=== PATIENT | female | born 1980 | race Caucasian/White ===

== ENCOUNTER → 2018-01-07 15:21 | Outpatient (CLI) | payer OTHER, SELFPAY ==
[2018-01-07 18:06] LABS: Chlamydia Trachomatis by PCR Negative (Negative); Neisserai gonorrhoeae by PCR Negative (Negative); Probe Check PASS; Sample Adequacy Control PASS; Specimen Processing Control PASS
== END ==
PROVIDERS: Visit Provider Obstetrics & Gynecology
DX: Z11.3 Encounter for screening for infections with a predominantly sexual mode of transmission (principal); Z32.01 Encounter for pregnancy test, result positive
CPT/HCPCS: 87491; 87591

== ENCOUNTER → 2018-01-21 15:20 | Outpatient (CLI) | payer OTHER, SELFPAY ==
[2018-01-21 16:12] LABS: Color, Urine Yellow (Yellow); Glucose, Dipstick Normal (Normal); Ketone-Dipstick Negative (Negative); Leukocyte Esterase-Dipstick Negative /ul (Negative); Nitrite-Dipstick Negative (Negative); Occult Blood-Urine Negative /ul (Negative); Protein-Dipstick Negative (Negative); Specific Gravity, Urine 1.015 (1.002-1.030); Urine Bilirubin Dipstick Negative (Negative); Urine Clarity Sl. Cloudy (Clear); Urine Urobilinogen Normal (Normal); Urine pH 6.5 (5.0 - 8.0)
[2018-01-21 16:15] LABS: Absolute Lymphocyte Count 2.16 X10^3/ul (0.83-4.51); Absolute Neutrophil Count 4.7 X10^3/uL (2.0-7.7); Basophil# 0.02 X10^3/uL; Basophil% 0.3 % (0-1); Eosinophil# 0.06 X10^3/uL; Eosinophils% 0.8 % (0-5); Hematocrit 35.9 % (37-47); Hemoglobin 12.2 g/dl (12.0-15.0); Lymphocyte # 2.16 X10^3/ul (4.0); Lymphocyte % 28.7 % (19-41); Mean Corpuscular Hgb 30.4 pg (27.0-32.0); Mean Corpuscular Volume 89.5 fL (81-99); Mean Platelet Vol. 11.2 fl (6.2-12.0); Monocyte# 0.56 X10^3/uL; Monocyte% 7.4 % (0-10); Neutrophil # 4.69 X10^3/uL (2.7-7.7); Neutrophil % 62.4 % (47-70); POSITIVE COUNT NO; POSITIVE DIFFERENTIAL NO; POSITIVE MORPHOLOGY NO; Platelet Count 167 K/mm3 (150-450); RBC Distribution Width CV 12.3 % (11.6-14.6); RBC Distribution Width SD 39.9 fl (35.1-43.9); Red Blood Count 4.01 M/mm3 (4.2-5.4); White Blood Count 7.5 K/mm3 (4.4-11.0)
[2018-01-21 16:35] LABS: Thyroid Stim Hormone (TSH) 0.81 uIU/mL (0.358-3.74)
[2018-01-21 17:07] LABS: HIV - WCH Non-Reactive (Nonreactive); Rubella IgG 22.1 IU/mL
[2018-01-21 17:43] LABS: Amphetamine Urine VISTA NEGATIVE (<1000 ng/mL); Barbiturate Urine VISTA NEGATIVE (< 200 ng/mL); Benzodiazepine Urine VISTA NEGATIVE (< 200 ng/mL); Cocaine Urine VISTA NEGATIVE (< 300 ng/mL); Ecstacy Urine VISTA NEGATIVE (< 500 ng/mL); Methadone Urine VISTA NEGATIVE (< 300 ng/mL); PCP Urine VISTA NEGATIVE (< 25 ng/mL); THC Urine VISTA NEGATIVE (< 50 ng/mL); Vista UDS pH Range 6
[2018-01-23 05:01] LABS: Prenatal RPR NONREACTIVE (NONREACTIVE)
[2018-01-23 11:15] LABS: HEPATITIS B SURFACE AG Negative (Negative); Hep C Antibodies <0.1 s/co ratio (0.0-0.9)
== END ==
PROVIDERS: Visit Provider Obstetrics & Gynecology
DX: Z34.81 Encounter for supervision of other normal pregnancy, first trimester (principal)
CPT/HCPCS: 36415; 80307; 81002; 84443; 85025; 86703; 86762; 86803; 87340

== ENCOUNTER → 2018-05-28 16:19 | Outpatient (CLI) | payer OTHER, SELFPAY ==
[2018-05-28 17:13] LABS: Hematocrit 31.5 % (37-47); Hemoglobin 10.5 g/dl (12.0-15.0); Mean Corp Hgb Conc 33.3 g/gl (32-36); Mean Corpuscular Hgb 30.6 pg (27.0-32.0); Mean Corpuscular Volume 91.8 fL (81-99); Mean Platelet Vol. 9.7 fl (6.2-12.0); Platelet Count 156 K/mm3 (150-450); RBC Distribution Width CV 12.9 % (11.6-14.6); RBC Distribution Width SD 41.8 fl (35.1-43.9); Red Blood Count 3.43 M/mm3 (4.2-5.4); White Blood Count 8.9 K/mm3 (4.4-11.0)
[2018-05-28 17:17] LABS: Scan Indicated on CBC? Y/N NO
[2018-05-28 18:17] LABS: Glucose Challenge Gest 1H 50g 112 mg/dL (70-140)
== END ==
PROVIDERS: Visit Provider Obstetrics & Gynecology
DX: Z34.83 Encounter for supervision of other normal pregnancy, third trimester (principal)
CPT/HCPCS: 36415; 82950; 85027

== ENCOUNTER → 2018-07-27 20:05 | Outpatient (CLI) | payer OTHER, SELFPAY ==
[2018-07-27 21:39] LABS: Group B Strep DNA By PCR Negative (Negative); Internal Control PASS; Probe Check PASS; Specimen Processing Control PASS
== END ==
PROVIDERS: Referring Provider Obstetrics & Gynecology; Visit Provider Obstetrics & Gynecology
DX: Z36.85 Encounter for antenatal screening for Streptococcus B (principal)
CPT/HCPCS: 87081; 87653

== ENCOUNTER 2018-08-19 05:30 | Inpatient (IN) | payer OTHER, SELFPAY ==
[2018-08-18 11:27] VITALS: BMI 29.0
[2018-08-18 12:38] LABS: Absolute Lymphocyte Count 1.83 X10^3/ul (0.83-4.51); Absolute Neutrophil Count 6.2 X10^3/uL (2.0-7.7); Basophil# 0.01 X10^3/uL; Basophil% 0.1 % (0-1); Eosinophil# 0.04 X10^3/uL; Eosinophils% 0.5 % (0-5); Hematocrit 30.7 % (37-47); Hemoglobin 9.6 g/dl (12.0-15.0); Lymphocyte # 1.83 X10^3/ul (4.0); Lymphocyte % 20.7 % (19-41); Mean Corp Hgb Conc 31.3 g/gl (32-36); Mean Corpuscular Hgb 27.7 pg (27.0-32.0); Mean Corpuscular Volume 88.5 fL (81-99); Mean Platelet Vol. 9.4 fl (6.2-12.0); Monocyte# 0.55 X10^3/uL; Monocyte% 6.2 % (0-10); Neutrophil # 6.24 X10^3/uL (2.7-7.7); Neutrophil % 70.6 % (47-70); Platelet Count 142 K/mm3 (150-450); RBC Distribution Width CV 14.6 % (11.6-14.6); Red Blood Count 3.47 M/mm3 (4.2-5.4); White Blood Count 8.8 K/mm3 (4.4-11.0)
[2018-08-18 12:44] LABS: POSITIVE COUNT NO; POSITIVE DIFFERENTIAL NO; POSITIVE MORPHOLOGY NO
[2018-08-19] VITALS (21 sets, daily range): BP systolic 89–115; BP diastolic 41–69; PULSE 76–97; RESP 16–19; TEMP 35.8–36.8; O2SAT 97–100
[2018-08-19] MEDS: Lactated Ringers 1,000 ML 999 ML IV (05:45)
[2018-08-19] MEDS: Lactated Ringers 1,000 ML 150 ML IV (06:51)
[2018-08-19] MEDS: Sodium Citrate/Citric Acid 30 ML UDC PO (06:56)
[2018-08-19] MEDS: Cefazolin 2 GM in 0.9% Normal Saline 100 ML IV (07:21)
[2018-08-19] MEDS: Oxytocin 30 units/NS 500 ml 30 UNITS/500 ML IV.SOLN 167 UNITS IV ×2 (07:43→08:18)
--- NOTE | 2018-08-19 08:21 | DCINST_ITS ---
Discharge Diet: No Restrictions Discharge Activity: May not drive while taking narcotic pain medications., May Shower, May Take a Tub Bath May resume sexual activity in: 4-6 weeks Lifting Restrictions: 20 pounds Additional Activity Instructions:: Nothing in the vagina for 4-6 weeks. You may return to work/school in 6 weeks. Call your doctor if your incision/area has: Continuous Slow Oozing, Sudden Increased Bleeding, Increased Pain/ Swelling, Increased Redness, Foul Smelling Discharge Call your doctor if you observe: Fever of 101 or Higher, Inability to urinate, Inability to have a bowel movement, Using more than one pad per hour Additional Instructions: If you experience any of the following, contact your healthcare provider. * Bleeding that soaks a pad every hour for 2 hours * Unrelieved incision or abdominal pain * Swelling, redness, discharge or bleeding from your incision or episiotomy site * Your incision begins to separate * Problems urinating (including inability to urinate or burning while urinating). * Visual changes * Severe headache * Flu-like symptoms * Pain or redness in one of both of your breasts * Pain, warmth, tenderness or swelling in your legs, especially the calf area * Frequent nausea and vomiting * Symptoms of depression or anxiety If you experience any of the following, call 911 or go to the nearest Emergency Room. * Chest pain * Problems breathing * Seizure activity * Partial or complete paralysis of a body part, slurred speech, weakness or drooping of the face, or a sudden inability to walk or hold your balance Allergies/Adverse Reactions: Allergies No Known Allergies Allergy (Verified 08/19/18 06:10) Medications to take at Discharge Pnv95/Ferrous Fumarate/FA [ Vitamin Tablet] 1 each PO DAILY 08/18/18 Docusate Sodium [Colace] 100 mg PO BID PRN PRN #60 cap 08/19/18 Oxycodone [Oxyir] 5 mg PO Q6H PRN PRN 7 Days #20 tab 08/19/18 The following prescriptions were given: Oxycodone [Oxyir] 5 mg PO Q6H PRN PRN 7 Days #20 tab PRN Reason: Severe Pain (-07/15) Docusate Sodium [Colace] 100 mg PO BID PRN PRN #60 cap PRN Reason: Constipation Follow-Up: Call to make an appointment with your doctor for an incision check in 1-2 weeks. You will also need a 6 week post- follow up appointment. Test results from this visit will be discussed in further detail at your follow- up appointment, if applicable. Please Follow Up With: Ford Burgess MD - [phone] When: Call to make an appointment for an incision check in 2 weeks. Primary Care Physician: Care Physician,No Primary [Primary Care Provider] -
--- NOTE | 2018-08-19 08:21 | OP.PCM_ITS ---
Operative Report Date of Procedure: 08/19/18 Surgeon: Ford uBrgess MD, FACOG Fire Apparatus Engineer: GONSALO Pittman Anesthesia: Viola Robbins MD Anesthesia: Spinal with Duramorph Pre-op Diagnosis: Prior Section; Desires Permanent Sterilization Post-Op Diagnosis: Prior Section; Desires Permanent Sterilization Procedure: Repeat Low Transverse Cervical Caesarean Section And Bilateral Tubal Occlusion with Filshie Clips Findings: Viable male infant with Apgars of 9/9 in transverse lie delivered vertex presentation with clear amniotic fluid and normal three-vessel placenta. Indication: This is a 38-year-old who presents for her second at 39+ weeks gestation. care has otherwise been uneventful. The patient has been counseled regarding the risk and indications of this procedure including the possibility of bleeding infection and injury to surrounding structures such as bowel bladder. All questions were answered. Procedure: Patient was taken to the operating room where after spinal anesthesia was placed, the patient was prepped and draped in usual sterile fashion and a Lyn catheter was placed. The abdomen was entered through the patient's prior Pfannenstiel incision and peritoneum was entered bluntly. After developing a bladder flap on the lower uterine segment a low transverse incision was made on the uterus and head was delivered onto the operative field the nose mouth and oropharynx were bulb suctioned. Subsequently a viable male infant was born with Apgars of 9/9. The was noted to cry move all extremities vigorously on the operative field. The umbilical cord was doubly clamped and ligated and infant handed to the nursery personnel who were present for the delivery. Placenta was delivered and noted to be 3 vessels and normal. Uterus was exteriorized and remaining placental tissue was removed. The uterus was then closed in 2 layers first with running locked 0 Vicryl suture followed by a second imbricating layer with 0 Vicryl suture. 0 Vicryl suture was then used in a horizontal mattress interrupted fashion to affect final hemostasis of the uterine incision line. Normal fallopian tubes and ovaries were visualized and Filshie clips were placed approximately 1-2 cm from the uterine fundus on both fallopian tubes; the uterus was returned to the pelvis. Hemostasis was noted and rectus abdominis muscles were reapproximated in the midline with interrupted Number 0 Vicryl suture in a horizontal mattress fashion. Fascia was closed with running Number 1 PDS Strata fix suture. Subcutaneous tissue was irrigated with copious amouts of saline solution and then closed with running 3-0 Vicryl suture. Skin was closed with 4-0 monocryl suture in a running subcuticular fashion. Steri strips, telfa, and tape were placed across the incision. The patient tolerated the procedure well and was taken to the recovery room in satisfactory condition. Sponge, needle, and instrument counts were all reportedly correct. EBL was less than 500 cc. Ancef 2 gms IV was given prior to the procedure. Spicemen to Pathology: None Complications: None
[2018-08-19] MEDS: Ketorolac 30 MG/ML Syringe IV ×3 (08:29→20:37)
[2018-08-19] MEDS: Ondansetron 4 MG/2 ML Vial IV (10:50)
[2018-08-19] MEDS: proMETHazine 25 MG/ML Syringe 12.5 MG IV (12:48)
--- NOTE | 2018-08-19 13:03 | NURSING ---
This nursing home administrator reviewed the charting completed by Curtis Romero, student nurse.
[2018-08-19] MEDS: Cefazolin 1 GM/50 ML BAG IV ×2 (14:38→23:44)
[2018-08-19] MEDS: Lactated Ringers 1,000 ML 100 ML IV (14:44)
[2018-08-19] MEDS: 0.9% Saline Lock 10 ML Syringe IV (20:38)
--- NOTE | 2018-08-20 | NURSING ---
Pt. reports cramping, but denies need for any additional pain medication at this time. Blood pressure runs low but pt. is asymptomatic. No headache, dizziness, and reports pain at a level 1-2. Pt. fundus firm at u-1 with appropriate bleeding. No blood clots on pad. present and infant sleeping in crib.
[2018-08-20] MEDS: Lactated Ringers 1,000 ML 100 ML IV (01:22)
[2018-08-20 01:23] VITALS: PULSE 84; RESP 17; O2SAT 97
[2018-08-20] MEDS: Ketorolac 30 MG/ML Syringe IV ×3 (02:43→16:05)
[2018-08-20 02:47] VITALS: PULSE 82; RESP 15; O2SAT 98
[2018-08-20 04:35] VITALS: BP 84/38; PULSE 77; RESP 16; TEMP 36.5; O2SAT 97
[2018-08-20 05:09] LABS: Hematocrit 23.6 % (37-47); Hemoglobin 7.2 g/dl (12.0-15.0); Mean Corp Hgb Conc 30.5 g/gl (32-36); Mean Corpuscular Hgb 27.6 pg (27.0-32.0); Mean Corpuscular Volume 90.4 fL (81-99); Mean Platelet Vol. 9.3 fl (6.2-12.0); Platelet Count 111 K/mm3 (150-450); RBC Distribution Width CV 14.4 % (11.6-14.6); RBC Distribution Width SD 45.4 fl (35.1-43.9); Red Blood Count 2.61 M/mm3 (4.2-5.4); White Blood Count 10.3 K/mm3 (4.4-11.0)
[2018-08-20 05:20] LABS: Scan Indicated on CBC? Y/N NO
--- NOTE | 2018-08-20 05:24 | NURSING ---
Pt. blood pressure was assessed and measured low at 85/39. Another reading was obtained and resulted as 84/38. Fundus firm and at u-2. Bleeding small and appropriate and pad changed to assess further bleeding. Fundus massaged to ensure no clots were present. Pt. asymptomatic otherwise. Lyn emptied for 800, heart rate WNL at 77 bpm, respirations 16, and all other vital signs stable.
[2018-08-20 06:50] VITALS: PULSE 81; RESP 15; O2SAT 99
[2018-08-20 08:20] VITALS: BP 95/50; PULSE 91; RESP 18; TEMP 36.5; O2SAT 99
[2018-08-20] MEDS: Senna/Docusate Sodium 1 Tablet PO (08:28)
[2018-08-20] MEDS: 0.9% Saline Lock 10 ML Syringe IV ×2 (08:29→16:05)
--- NOTE | 2018-08-20 09:13 | PCM.PN.OB ---
Subjective: Patient without complaints. Tolerating diet well. Minimal vaginal bleeding. Denies orthostatic changes. Positive flatus. - Physical Exam Vital Signs Temp Pulse Resp BP Pulse Ox 97.7 F L 81 15 84/38 L 99 08/20/18 04:35 08/20/18 06:50 08/20/18 06:50 08/20/18 04:35 08/20/18 06:50 Oxygen Delivery Method Room Air Weight: 169 lb 8.568 oz Body Mass Index (BMI) 29.0 Intake and Output for Last 24 Hours 08/18/18 08/19/18 08/20/18 23:59 23:59 23:59 Intake Total 3817 / 3817 1780 / 1780 Output Total 1950 / 1950 1650 / 1650 Balance 1867 / 1867 130 / 130 Laboratory Tests Past 24 Hrs 08/20/18 04:55 WBC 10.3 RBC 2.61 L Hgb 7.2 L Hct 23.6 L MCV 90.4 MCH 27.6 MCHC 30.5 L RDW 14.4 RDW Differential 45.4 H Plt Count 111 L MPV 9.3 Wound is clean, dry, intact. Good urine output. Hemoglobin okay. Medical Necessity - Tobacco Use Smoking Status: Former smoker Assessment/Plan Doing well postoperative day #1 status post repeat . Continuing current care. Plan to repeat CBC tomorrow to confirm stable.
[2018-08-20] MEDS: oxyCODONE 5 MG Tablet PO ×3 (13:05→22:18)
--- NOTE | 2018-08-20 17:05 | NURSING ---
iv infiltrated, pt does not want it restarted. order rec'd from Dr. Mccracken to d/c lock and toradol.
[2018-08-20 19:55] VITALS: BP 94/40; PULSE 84; RESP 17; TEMP 36.3
[2018-08-20] MEDS: Acetaminophen 500 MG Tablet 1000 MG PO (22:19)
[2018-08-21 02:05] VITALS: BP 94/39; PULSE 80; RESP 16; TEMP 36.3; O2SAT 96
[2018-08-21] MEDS: oxyCODONE 5 MG Tablet PO ×2 (02:15→06:24)
[2018-08-21 06:35] LABS: Absolute Neutrophil Count 7.1 X10^3/uL (2.0-7.7); Basophil# 0.01 X10^3/uL; Basophil% 0.1 % (0-1); Eosinophil# 0.16 X10^3/uL; Eosinophils% 1.6 % (0-5); Hematocrit 25.3 % (37-47); Hemoglobin 7.6 g/dl (12.0-15.0); Lymphocyte % 18.2 % (19-41); Mean Corpuscular Hgb 27.3 pg (27.0-32.0); Mean Platelet Vol. 9.1 fl (6.2-12.0); Monocyte# 0.71 X10^3/uL; Monocyte% 7.2 % (0-10); Neutrophil # 7.05 X10^3/uL (2.7-7.7); Neutrophil % 71.5 % (47-70); Platelet Count 140 K/mm3 (150-450); RBC Distribution Width CV 14.8 % (11.6-14.6); RBC Distribution Width SD 46.9 fl (35.1-43.9); Red Blood Count 2.78 M/mm3 (4.2-5.4); White Blood Count 9.9 K/mm3 (4.4-11.0)
[2018-08-21 06:36] LABS: POSITIVE COUNT NO; POSITIVE DIFFERENTIAL NO; POSITIVE MORPHOLOGY NO
[2018-08-21 09:00] VITALS: BP 99/53; PULSE 91; RESP 16; TEMP 36.8; O2SAT 99
[2018-08-21] MEDS: Ibuprofen 600 MG Tablet PO (09:04)
--- NOTE | 2018-08-21 09:16 | PN.OBGYN_ITS ---
Subjective: Patient without complaints. Tolerating diet well. Positive flatus. Denies orthostatic changes. Ready to go home later today. - Physical Exam Vital Signs Temp Pulse Resp BP Pulse Ox 97.4 F L 80 16 94/39 L 96 08/21/18 02:05 08/21/18 02:05 08/21/18 02:05 08/21/18 02:05 08/21/18 02:05 Oxygen Delivery Method Room Air Weight: 169 lb 8.568 oz Body Mass Index (BMI) 29.0 Intake and Output for Last 24 Hours 08/19/18 08/20/18 08/21/18 23:59 23:59 23:59 Intake Total 3817 / 3817 2134 / 2134 Output Total 1950 / 1950 2550 / 2550 Balance 1867 / 1867 -416 / -416 Laboratory Tests Past 24 Hrs 08/21/18 06:20 WBC 9.9 RBC 2.78 L Hgb 7.6 L Hct 25.3 L MCV 91.0 MCH 27.3 MCHC 30.0 L RDW 14.8 H RDW Differential 46.9 H Plt Count 140 L MPV 9.1 Immature Gran % (Auto) 1.400 H Neut % (Auto) 71.5 H Lymph % (Auto) 18.2 L Rincon % (Auto) 7.2 Eos % (Auto) 1.6 Baso % (Auto) 0.1 Absolute Neuts (auto) 7.1 Absolute Lymphs (auto) 1.80 Total Counted Not Reportable Wound is clean, dry, intact. Good urine output. Hemoglobin stable. Medical Necessity - Tobacco Use Smoking Status: Former smoker Assessment/Plan Doing well post operative day #2 status post repeat . Will release to home with routine instructions.
[2018-08-21 14:00] VITALS: BP 101/55; PULSE 88; RESP 16; TEMP 36.9
== END 2018-08-21 14:15 | disposition home or self-care (01) | DRG 785 ==
PROVIDERS: Admitting Provider Obstetrics & Gynecology; Referring Provider Obstetrics & Gynecology; Visit Provider Obstetrics & Gynecology
PROC: 10D00Z1 Extraction of Products of Conception, Low, Open Approach (ICD-10-PCS; CPT 59514; principal; 2018-08-19 07:15)
DX: O34.211 Maternal care for low transverse scar from previous cesarean delivery (principal); Z3A.39 39 weeks gestation of pregnancy; Z37.0 Single live birth; Z87.891 Personal history of nicotine dependence
CPT/HCPCS: 85025; 85027; 86850; 86900; 99218; J7120; 90686; A4216; G0378; J2405

== ENCOUNTER → 2018-09-02 12:23 | Outpatient (CLI) | payer OTHER, SELFPAY ==
--- OUTSIDE RECORDS SUMMARY | 2018-10-28 21:31 | XMS RPT_ITS ---
:1980 Author Organization OHIP Support Name Relationship Address Phone TAMMI POSEY Unavailable [address] + [place] [phone] [employer] Unavailable [address] + [place] [phone] SUZANNE RAY Unavailable [address] + [place] [address] TAMMI POSEY Unavailable [address] + [place] [phone] [employer] [employer] Unavailable [address] + [place] [phone] SUZANNE RAY Unavailable [address] + [place] [address] TAMMI POSEY Unavailable [address] + [place] [phone] [facility] Unavailable [address] + [place] [phone] SUZANNE RAY Unavailable [address] + [place] [address] TAMMI POSEY Unavailable [address] + [place] [address] [facility] Unavailable / +. [place] [phone] SUZANNE RAY Unavailable [address] + [place] [address] TAMMI POSEY Unavailable [address] + [place] [address] [facility] Unavailable / +. [place] [phone] SUZANNE RAY Unavailable [address] + [place] [address] TAMMI POSEY Unavailable [address] + [place] [address] BENJI LUMBER Unavailable / +. [facility] ms . SUZANNE RAY Unavailable [address] + [place] [address] TAMMI POSEY Unavailable [address] + [place] [address] [facility] Unavailable / +. [place] . SUZANNE RAY Unavailable [address] + [place] [address] Care Team Providers Name Role Phone Ford Burgess Attending Unavailable Ford Burgess Referring Unavailable Primay Care Physicia, No Primary Care Unavailable Ford Burgess Attending Unavailable Primay Care Physicia, No Primary Care Unavailable Ford Burgess Attending Unavailable Primay Care Physicia, No Primary Care Unavailable Ford Burgess Attending Unavailable Primay Care Physicia, No Primary Care Unavailable Ford Burgess Attending Unavailable Primay Care Physicia, No Primary Care Unavailable Ford Burgess Referring Unavailable Ford Burgess Admitting Unavailable Ford Burgess Attending Unavailable Ford Burgess Referring Unavailable Primay Care Physicia, No Primary Care Unavailable Ford Burgess Attending Unavailable Ford Burgess Referring Unavailable VaccariFord avitia Primary Care Unavailable PROBLEMS PROBLEMS DATE TYPE CONDITION / CODE ATTENDING STATUS SOURCE 09/02/2018 Unknown R10.2 - Pelvic and Ford Burgess perineal pain / Community R10.2(ICD-10) Hospital Repository 09/02/2018 Unknown R19.7 - Diarrhea, Ford Burgess unspecified / Community R19.7(ICD-10) Hospital Repository 08/21/2018 Unknown G89.18 - Other acute Ford Burgess postprocedural pain Community / G89.18(ICD-10) Hospital Repository 07/28/2018 Unknown Z36.85 - Encounter Ford Burgess for Community screening for Hospital Streptococcus B / Repository Z36.85(ICD-10) 05/28/2018 Unknown Z34.83 - Encounter Ford Burgess for supervision of Community other normal Hospital , third Repository trimester / Z34.83(ICD-10) 01/21/2018 Unknown Z34.81 - Encounter Ford Burgess for supervision of Community other normal Hospital , first Repository trimester / Z34.81(ICD-10) 01/07/2018 Unknown Z11.3 - Encounter Ford Burgess for screening for Community infections with a Hospital predominantly sexual Repository mode of transmission / Z11.3(ICD-10) 01/07/2018 Unknown Z32.01 - Encounter Ford Burgess Active Jona for test, Community result positive / Hospital Z32.01(ICD-10) Repository PROCEDURES PROCEDURES No Procedure Records FoundRESULTS RESULTS CBC W/DIFF, AUTOMATED Collected: 08/21/2018 Status: F Source: JONA 6:20 AM [facility] REPOSITORY TYPE CODE TESTS RESULT OUT OF RANGE REFERENCE UNITS LAB L100.1000 4.4-11.0 K/mm3 Normal WBC 9.9 LAB L100.1200 4.2-5.4 M/mm3 Low RBC 2.78 LAB L100.1300 12.0-15.0 g/dl Low HGB 7.6 LAB L100.1400 37-47 % Low HCT 25.3 LAB L100.1500 81-99 fL Normal MCV 91.0 LAB L100.1600 27.0-32.0 pg Normal MCH 27.3 LAB L100.1700 32-36 g/gl Low MCHC 30.0 LAB L100.1810 11.6-14.6 % High RDW CV 14.8 LAB L100.1820 35.1-43.9 fl High RDW SD 46.9 LAB L100.1900 150-450 K/mm3 Low PLT 140 LAB L100.2000 6.2-12.0 fl Normal MPV 9.1 LAB L100.2100 47-70 % High NEUT% 71.5 LAB L100.2200 19-41 % Low LY% 18.2 LAB L100.2300 0-10 % Normal MONO% 7.2 LAB L100.2400 0-5 % Normal EO% 1.6 LAB L100.2500 0-1 % Normal BASO% 0.1 LAB L100.2550 0.0-0.9 % High IM GRAN % 1.400 Result Comment: IG% - Immature Granulocytes (promyelocytes, myelocytes and metamyelocytes) > 1% indicates that a LEFT SHIFT is Present. LAB L100.2620 2.0-7.7 X10 3/uL Normal Absolute Neut 7.1 LAB L100.2720 0.83-4.51 X10 3/ul Normal Absolute Lymph 1.80 Performed By: #### L100.0100 #### [facility] [address] [place], [address] CBC-COMPLETE BLOOD CNT Collected: 08/20/2018 Status: F Source: JONA NO DIFF 4:55 AM [facility] REPOSITORY Order Comment: Comments: Day #1 Reason for Laboratory Test TYPE CODE TESTS RESULT OUT OF RANGE REFERENCE UNITS LAB L100.1000 4.4-11.0 K/mm3 Normal WBC 10.3 LAB L100.1200 4.2-5.4 M/mm3 Low RBC 2.61 LAB L100.1300 12.0-15.0 g/dl Low HGB 7.2 LAB L100.1400 37-47 % Low HCT 23.6 LAB L100.1500 81-99 fL Normal MCV 90.4 LAB L100.1600 27.0-32.0 pg Normal MCH 27.6 LAB L100.1700 32-36 g/gl Low MCHC 30.5 LAB L100.1810 11.6-14.6 % Normal RDW CV 14.4 LAB L100.1820 35.1-43.9 fl High RDW SD 45.4 LAB L100.1900 150-450 K/mm3 Low PLT 111 LAB L100.2000 6.2-12.0 fl Normal MPV 9.3 Performed By: #### L100.0500 #### [facility] [address] [place], [address] OPERATIVE REPORT Observed: 08/19/2018 Status: F Source: JONA 8:21 AM [facility] REPOSITORY [facility] Medical Records Department [facility] [place] [address] Operative Report 08/19/18 0818 MR#: [id number] Acct: [id number] Name: JAE POSEY Rep #: [id number] : 1980 38 From: Ford Burgess MD PCP: Care Physician, No Primary Status: ADM IN Location: [id number] Operative Report Date of Procedure: 08/19/18 Surgeon: Ford Burgess MD, FACOG Coin Machine Collector: GONSALO Pittman Anesthesia: Viola Robbins MD Anesthesia: Spinal with Duramorph Pre-op Diagnosis: Prior Section; Desires Permanent Sterilization Post-Op Diagnosis: Prior Section; Desires Permanent Sterilization Procedure: Repeat Low Transverse Cervical Caesarean Section And Bilateral Tubal Occlusion with Filshie Clips Findings: Viable male with Apgars of 9/9 in transverse lie delivered vertex presentation with clear amniotic fluid and normal three-vessel placenta. Indication: This is a 38-year-old who presents for her second at 39+ weeks gestation. care has otherwise been uneventful. The patient has been counseled regarding the risk and indications of this procedure including the possibility of bleeding infection and injury to surrounding structures such as bowel bladder. All questions were answered. Procedure: Patient was taken to the operating room where after spinal anesthesia was placed, the patient was prepped and draped in usual sterile fashion and a Lyn catheter was placed. The abdomen was entered through the patient's prior Pfannenstiel incision and peritoneum was entered bluntly. After developing a bladder flap on the lower uterine segment a low transverse incision was made on the uterus and head was delivered onto the operative field the nose mouth and oropharynx were bulb suctioned. Subsequently a viable male was born with Apgars of 9/9. The infant was noted to cry move all extremities vigorously on the operative field. The umbilical cord was doubly clamped and ligated and handed to the nursery personnel who were present for the delivery. Placenta was delivered and noted to be 3 vessels and normal. Uterus was exteriorized and remaining placental tissue was removed. The uterus was then closed in 2 layers first with running locked 0 Vicryl suture followed by a second imbricating layer with 0 Vicryl suture. 0 Vicryl suture was then used in a horizontal mattress interrupted fashion to affect final hemostasis of the uterine incision line. Normal fallopian tubes and ovaries were visualized and Filshie clips were placed approximately 1-2 cm from the uterine fundus on both fallopian tubes; the uterus was returned to the pelvis. Hemostasis was noted and rectus abdominis muscles were reapproximated in the midline with interrupted Number 0 Vicryl suture in a horizontal mattress fashion. Fascia was closed with running Number 1 PDS Strata fix suture. Subcutaneous tissue was irrigated with copious amouts of saline solution and then closed with running 3-0 Vicryl suture. Skin was closed with 4-0 monocryl suture in a running subcuticular fashion. Steri strips, telfa, and tape were placed across the incision. The patient tolerated the procedure well and was taken to the recovery room in satisfactory condition. Sponge, needle, and instrument counts were all reportedly correct. EBL was less than 500 cc. Ancef 2 gms IV was given prior to the procedure. Spicemen to Pathology: None Complications: None 08/19/18820 <Electronically signed by Ford Burgess MD> Date Ford Burgess MD CC: No Primary Care Physician; Ford Burgess MD Signed DISCHARGE INSTRUCTION Observed: 08/19/2018 Status: F Source: COLON 8:21 AM [facility] REPOSITORY [facility] Medical Records Department [address] [place] [address] Instructions for Home/Discharge Instructions 08/19/18820 MR#: [id number] Acct: [id number] Name: JAE POSEY Rep #: [id number] : 1980 38 From: Ford Burgess MD PCP: Care Physician, No Primary Status: ADM IN Discharge Diet: No Restrictions Discharge Activity: May not drive while taking narcotic pain medications., May Shower, May Take a Tub Bath May resume sexual activity in: 4-6 weeks Lifting Restrictions: 20 pounds Additional Activity Instructions:: Nothing in the vagina for 4-6 weeks. You may return to work/school in 6 weeks. Call your doctor if your incision/area has: Continuous Slow Oozing, Sudden Increased Bleeding, Increased Pain/ Swelling, Increased Redness, Foul Smelling Discharge Call your doctor if you observe: Fever of 101 or Higher, Inability to urinate, Inability to have a bowel movement, Using more than one pad per hour Additional Instructions: If you experience any of the following, contact your healthcare provider. * Bleeding that soaks a pad every hour for 2 hours * Unrelieved incision or abdominal pain * Swelling, redness, discharge or bleeding from your incision or episiotomy site * Your incision begins to separate * Problems urinating (including inability to urinate or burning while urinating). * Visual changes * Severe headache * Flu-like symptoms * Pain or redness in one of both of your breasts * Pain, warmth, tenderness or swelling in your legs, especially the calf area * Frequent nausea and vomiting * Symptoms of depression or anxiety If you experience any of the following, call 911 or go to the nearest Emergency Room. * Chest pain * Problems breathing * Seizure activity * Partial or complete paralysis of a body part, slurred speech, weakness or drooping of the face, or a sudden inability to walk or hold your balance Allergies/Adverse Reactions: Allergies No Known Allergies Allergy (Verified 08/19/18 06:10) Medications to take at Discharge Pnv95/Ferrous Fumarate/FA [ Vitamin Tablet] 1 each PO DAILY 08/18/18 Docusate Sodium [Colace] 100 mg PO BID PRN PRN #60 cap 08/19/18 Oxycodone [Oxyir] 5 mg PO Q6H PRN PRN 7 Days #20 tab 08/19/18 The following prescriptions were given: Oxycodone [Oxyir] 5 mg PO Q6H PRN PRN 7 Days #20 tab PRN Reason: Severe Pain (-07/15) Docusate Sodium [Colace] 100 mg PO BID PRN PRN #60 cap PRN Reason: Constipation Follow-Up: Call to make an appointment with your doctor for an incision check in 1-2 weeks. You will also need a 6 week post- follow up appointment. Test results from this visit will be discussed in further detail at your follow-up appointment, if applicable. Please Follow Up With: Ford Burgess MD - [phone] When: Call to make an appointment for an incision check in 2 weeks. Primary Care Physician: Care Physician,No Primary [Primary Care Provider] - 08/19/18 0821 <Electronically signed by Ford Burgess MD> Date Ford Burgess MD CC: No Primary Care Physician CBC W/DIFF, AUTOMATED Collected: 08/18/2018 Status: F Source: JONA 12:15 PM [facility] REPOSITORY TYPE CODE TESTS RESULT OUT OF RANGE REFERENCE UNITS LAB L100.1000 4.4-11.0 K/mm3 Normal WBC 8.8 LAB L100.1200 4.2-5.4 M/mm3 Low RBC 3.47 LAB L100.1300 12.0-15.0 g/dl Low HGB 9.6 LAB L100.1400 37-47 % Low HCT 30.7 LAB L100.1500 81-99 fL Normal MCV 88.5 LAB L100.1600 27.0-32.0 pg Normal MCH 27.7 LAB L100.1700 32-36 g/gl Low MCHC 31.3 LAB L100.1810 11.6-14.6 % Normal RDW CV 14.6 LAB L100.1820 35.1-43.9 fl High RDW SD 47.0 LAB L100.1900 150-450 K/mm3 Low PLT 142 LAB L100.2000 6.2-12.0 fl Normal MPV 9.4 LAB L100.2100 47-70 % High NEUT% 70.6 LAB L100.2200 19-41 % Normal LY% 20.7 LAB L100.2300 0-10 % Normal MONO% 6.2 LAB L100.2400 0-5 % Normal EO% 0.5 LAB L100.2500 0-1 % Normal BASO% 0.1 LAB L100.2550 0.0-0.9 % High IM GRAN % 1.900 Result Comment: IG% - Immature Granulocytes (promyelocytes, myelocytes and metamyelocytes) > 1% indicates that a LEFT SHIFT is Present. LAB L100.2620 2.0-7.7 X10 3/uL Normal Absolute Neut 6.2 LAB L100.2720 0.83-4.51 X10 3/ul Normal Absolute Lymph 1.83 Performed By: #### L100.0100, B101.7450 #### [facility] [address] [facility] [place], [place], [address] TYPE AND SCREEN Collected: 08/18/2018 Status: F Source: COLON 12:15 PM [facility] REPOSITORY Order Comment: Reason for Type AND Screen/Red Cells: ROUTINE TYPE CODE TESTS RESULT OUT OF RANGE REFERENCE UNITS LAB B10.0800 A Normal BLOOD TYPE GEL POSITIVE LAB B100.4000 Normal Antibody NEGATIVE Screen Performed By: #### L100.0100, B101.7450 #### [facility] [address] [facility] [place], [address] GROUP B STREP DNA Collected: 07/27/2018 Status: F Source: JONA BY PCR 4:30 PM [facility] REPOSITORY Order Comment: Source: Vaginal-Rectal TYPE CODE TESTS RESULT OUT OF RANGE REFERENCE UNITS LAB L8200.0100 Negative Normal GBS TEST Negative RESULT Performed By: #### L8200.0000 #### [facility] [address] [facility] [place], [address] Observed: 07/27/2018 Status: F Source: JONA CULTURE, GROUP B 12:00 AM [facility] STREPTOCOCCUS REPOSITORY MONSERRAT Culture Group B Beta Streptococcus is not isolated. Performed By: #### M100.1800 #### [facility] [address] [facility] [place], [address] CBC-COMPLETE BLOOD CNT Collected: 05/28/2018 Status: F Source: JONA NO DIFF 4:35 PM [facility] REPOSITORY TYPE CODE TESTS RESULT OUT OF RANGE REFERENCE UNITS LAB L100.1000 4.4-11.0 K/mm3 Normal WBC 8.9 LAB L100.1200 4.2-5.4 M/mm3 Low RBC 3.43 LAB L100.1300 12.0-15.0 g/dl Low HGB 10.5 LAB L100.1400 37-47 % Low HCT 31.5 LAB L100.1500 81-99 fL Normal MCV 91.8 LAB L100.1600 27.0-32.0 pg Normal MCH 30.6 LAB L100.1700 32-36 g/gl Normal MCHC 33.3 LAB L100.1810 11.6-14.6 % Normal RDW CV 12.9 LAB L100.1820 35.1-43.9 fl Normal RDW SD 41.8 LAB L100.1900 150-450 K/mm3 Normal PLT 156 LAB L100.2000 6.2-12.0 fl Normal MPV 9.7 Performed By: #### L100.0500 #### [facility] [address] [facility] [place], [address] GLUCOSE CHALLENGE GEST Collected: 05/28/2018 Status: F Source: JONA 1H 50G 4:35 PM [facility] REPOSITORY TYPE CODE TESTS RESULT OUT OF RANGE REFERENCE UNITS LAB L501.0250 70-140 mg/dL Normal GLU GEST 112 50g 1H Performed By: #### L501.0250 #### [facility] [address] [place], [place], [id number] URINE DRUG SCREEN Collected: 01/21/2018 Status: F Source: JONA (VISTA) 3:22 PM [facility] REPOSITORY Order Comment: List of Drugs Taken or Suspected? UNK TYPE CODE TESTS RESULT OUT OF RANGE REFERENCE UNITS LAB L505.0075 TO BE Normal CONFIRMED Result Comment: CONFIRMATORY TESTING FOR ALL POSITIVE URINE DRUG SCREEN RESULTS WILL ONLY BE SENT OUT UPON PHYSICIAN ORDER. VISTA Urine Drug Screen methods provide only preliminary analytical test results. A more specific alternate chemical method must be used in order to obtain a confirmed analytical result. Gas chromatography/mass spectrometery (GC/MS) is the preferred confirmatory method. Clinical consideration and professional judgement should be applied to any drug of abuse test result, particularly when preliminary positive results are used. URINE TCA TESTING MUST BE ORDERED SEPARATELY. USE TEST MNEMONIC: [facility] LAB L505.5005 VISTA UDS PH 6 Normal LAB L505.5015 <1000 ng/mL AMPHETAMINES Normal NEGATIVE LAB L505.5025 < 200 ng/mL BARBITIURATES Normal NEGATIVE LAB L505.5035 < 200 ng/mL BENZODIAZIPINE Normal NEGATIVE LAB L505.5045 < 300 ng/mL COCAINE Normal NEGATIVE LAB L505.5055 < 500 ng/mL ECSTACY Normal NEGATIVE LAB L505.5065 < 300 ng/mL METHADONE Normal NEGATIVE LAB L505.5075 < 300 ng/mL OPIATES Normal NEGATIVE LAB L505.5085 < 25 ng/mL PCP Normal NEGATIVE LAB L505.5095 < 50 ng/mL THC Normal NEGATIVE Performed By: #### L505.5000 #### [facility] [address] [place], [place], [address] URINALYSIS, ROUTINE Collected: 01/21/2018 Status: F Source: JONA (DIPSTICK) 3:22 PM [facility] REPOSITORY Order Comment: How was Urine Obtained? Urine, Random TYPE CODE TESTS RESULT OUT OF RANGE REFERENCE UNITS LAB L400.3000 Yellow COLOR Normal Yellow LAB L400.3050 Clear Normal CLARITY Sl. Cloudy LAB L400.3200 Normal mg/dl Normal GLUCOSE, UR Normal LAB L400.3300 Negative mg/dL Normal BILIRUBIN URINE Negative LAB L400.3400 Negative mg/dl Normal KETONE UR Negative LAB L400.3465 1.002-1.030 Normal SP.GR. DIPSTX 1.015 LAB L400.3550 5.0 - 8.0 pH UR Normal 6.5 LAB L400.3600 Negative mg/dl PROT Normal DIPSTX Negative LAB L400.3700 Normal mg/dl Normal UROBILI Normal LAB L400.3750 Negative Normal NITRITE UR Negative LAB L400.3780 Negative /ul Normal OCCULT BLOOD-UR Negative LAB L400.3800 Negative /ul LEUK Normal ESTERASE Negative Performed By: #### L400.2011 #### [facility] [address] [place], [address] CBC W/DIFF, AUTOMATED Collected: 01/21/2018 Status: F Source: COLON 3:22 PM [facility] REPOSITORY TYPE CODE TESTS RESULT OUT OF RANGE REFERENCE UNITS LAB L100.1000 4.4-11.0 K/mm3 Normal WBC 7.5 LAB L100.1200 4.2-5.4 M/mm3 Low RBC 4.01 LAB L100.1300 12.0-15.0 g/dl Normal HGB 12.2 LAB L100.1400 37-47 % Low HCT 35.9 LAB L100.1500 81-99 fL Normal MCV 89.5 LAB L100.1600 27.0-32.0 pg Normal MCH 30.4 LAB L100.1700 32-36 g/gl Normal MCHC 34.0 LAB L100.1810 11.6-14.6 % Normal RDW CV 12.3 LAB L100.1820 35.1-43.9 fl Normal RDW SD 39.9 LAB L100.1900 150-450 K/mm3 Normal PLT 167 LAB L100.2000 6.2-12.0 fl Normal MPV 11.2 LAB L100.2100 47-70 % Normal NEUT% 62.4 LAB L100.2200 19-41 % Normal LY% 28.7 LAB L100.2300 0-10 % Normal MONO% 7.4 LAB L100.2400 0-5 % Normal EO% 0.8 LAB L100.2500 0-1 % Normal BASO% 0.3 LAB L100.2550 0.0-0.9 % Normal IM GRAN % 0.400 Result Comment: IG% - Immature Granulocytes (promyelocytes, myelocytes and metamyelocytes) > 1% indicates that a LEFT SHIFT is Present. LAB L100.2620 2.0-7.7 X10 3/uL Normal Absolute Neut 4.7 LAB L100.2720 0.83-4.51 X10 3/ul Normal Absolute Lymph 2.16 Performed By: #### L100.0100 #### [facility] [address] [facility] [place], [place], [id number] THYROID STIM HORMONE Collected: 01/21/2018 Status: F Source: COLON (TSH) 3:22 PM [facility] REPOSITORY TYPE CODE TESTS RESULT OUT OF RANGE REFERENCE UNITS LAB L501.9520 0.358-3.74 uIU/mL Normal TSH 0.81 Performed By: #### L501.9520 #### [facility] [address] [facility] [place], [address] RUBELLA IGG Collected: 01/21/2018 Status: F Source: COLON 3:22 PM [facility] REPOSITORY TYPE CODE TESTS RESULT OUT OF RANGE REFERENCE UNITS LAB L509.4000 IU/mL Normal Rubella IgG 22.1 Result Comment: Antibody results Interpretation of Immune Status < 5 IU/ml Presumed Non-immune 5 - < 10 IU/ml Equivocal > or = 10 IU/ml Presumed Immune Performed By: #### L509.4000, L3890.6005 #### [facility] [address] [place], [address] HIV - [facility] Collected: 01/21/2018 Status: F Source: COLON 3:22 PM [facility] REPOSITORY TYPE CODE TESTS RESULT OUT OF RANGE REFERENCE UNITS LAB L3890.6005 Nonreactive Normal HIV - [facility] Non-Reactive Performed By: #### L509.4000, L3890.6005 #### [facility] [address] [place], [address] T AND S-NO Collected: 01/21/2018 Status: F Source: JONA CHARGE W/PNP 3:22 PM [facility] REPOSITORY Order Comment: Reason for Type AND Screen/Red Cells: Surgery? N TYPE CODE TESTS RESULT OUT OF RANGE REFERENCE UNITS LAB B10.0800 A Normal BLOOD POSITIVE TYPE GEL LAB B100.4050 Normal Ab SCREEN NEGATIVE GEL Performed By: #### B100.7550 #### [facility] [address] [facility] [place], [place], [address] RPR Collected: 01/21/2018 Status: F Source: COLON 3:22 PM [facility] REPOSITORY TYPE CODE TESTS RESULT OUT OF REFERENCE UNITS RANGE LAB L700.5100 NONREACTIVE Normal RPR NONREACTIVE Performed By: #### L700.5100 #### [facility] [address] [place], [place], [address] HEPATITIS B SURFACE Collected: 01/21/2018 Status: F Source: JONA AG 3:22 PM [facility] REPOSITORY TYPE CODE TESTS RESULT OUT OF RANGE REFERENCE UNITS LAB L3100.0400 Negative Normal HB Negative SURF AG Result Comment: Performed at: - [facility] [id number] Convention Services Director: Solitario Callejas PhD, Phone: [phone] Performed By: #### L3100.0390, L3100.0625 #### [facility] (refer to report for specific site) refer to report for address and phone number HEPATITIS C ANTIBODIES Collected: 01/21/2018 Status: F Source: JONA 3:22 PM [facility] REPOSITORY TYPE CODE TESTS RESULT OUT OF RANGE REFERENCE UNITS LAB L3100.0650 0.0-0.9 s/co ratio Normal HEP C AB <0.1 Result Comment: Negative: < 0.8 Indeterminate: 0.8 - 0.9 Positive: > 0.9 The CDC recommends that a positive HCV antibody result be followed up with a HCV Nucleic Acid Amplification test (103097). Performed By: #### L3100.0390, L3100.0625 #### [facility] (refer to report for specific site) refer to report for address and phone number CT/NG [facility] BY PCR Collected: 01/07/2018 Status: F Source: JONA 11:15 AM [facility] REPOSITORY TYPE CODE TESTS RESULT OUT OF RANGE REFERENCE UNITS LAB L8200.2100 Negative Normal Chlam Negative Trac PCR LAB L8200.2200 Negative Normal NG by Negative PCR Performed By: #### L8200.1999 #### [facility] [address] [place], [address] PAP I-G W/ REFLEX Collected: 09/25/2017 Status: F Source: JONA TO HR HPV 4:00 PM [facility] REPOSITORY Order Comment: CYTOLOGY INFORMATION: - CLINICAL INFORMATION: - DATE LMP/MENOPAUSE: 09/08/17 LMP - COLLECTION VIAL: Thin Prep Vial - MULTI SHARE PROGRAM COORDINATOR SOURCE: CERVICAL/ENDOCERVICAL - COLLECTION TECHNIQUE: BRUSH/SPATULA Specimen Comment: [id number] Specimen Comment: No. of containers..01 ThinPrep Vial TYPE CODE TESTS RESULT OUT OF RANGE REFERENCE UNITS LAB L7400.0800 . Normal DIAGN Comment Result Comment: NEGATIVE FOR INTRAEPITHELIAL LESION AND MALIGNANCY. LAB L7400.0900 . Normal ADEQ Comment Result Comment: Satisfactory for evaluation. Endocervical and/or squamous metaplastic cells (endocervical component) are present. LAB L7400.1400 . Normal PERFORM Comment Result Comment: Dhara Ramirez Inside Plant Supervisor (ASCP) LAB L7400.2575 . Normal TEST METHOD Comment Result Comment: This liquid based ThinPrep(R) pap test was screened with the use of an image guided system. LAB L7400.2600 . Normal . COMM LAB L7400.2700 . Normal PAPSMR Comment Result Comment: The Pap smear is a screening test designed to aid in the detection of premalignant and malignant conditions of the uterine cervix. It is not a diagnostic procedure and should not be used as the sole means of detecting cervical cancer. Both false-positive and false-negative reports do occur. LAB L7400.2800 . Normal HPV RFLX Comment Result Comment: The HPV DNA reflex criteria were not met with this specimen result therefore, no HPV testing was performed. Performed at: [address] [id number] Convention Services Director: Denise Louie MD, Phone: [phone] Performed By: #### L7400.0355 #### [facility] (refer to report for specific site) refer to report for address and phone number ALLERGIES ALLERGIES DATE TYPE / CODE NAME / CODE REACTION SEVERITY SOURCE 08/19/2018 Drug No Known Unknown [place] [facility] Allergy/4160 Allergies/F00 [facility] 28946(SNOMED 7211571(RXNOR Repository CT) M) ENCOUNTERS ENCOUNTERS ADMIT/DISCHARGE ACCOUNT ADMITTING ENCOUNTER LOCATION SOURCE NUMBER CLASS 09/02/2018 [id number] Ambulatory Jona Jona 4 [facility] ing:LAB.FUTUR Repository E 08/19/2018/ [id number] Ford Burgess Inpatient Jona [place] [address] [facility] ing:WPRoom: Repository TP999Yau: 1 07/27/2018 [id number] Ambulatory Jona Jona [address] [facility] ing:LABSPEC Repository 05/28/2018 [id number] Ambulatory Jona Jona 4 [facility] ing:WOBLAB Repository 01/21/2018 [id number] Ambulatory Jona Jona 8 [facility] ing:WOBLAB Repository 01/07/2018 [id number] Ambulatory Jona Jona 9 [facility] ing:LABSPEC Repository 09/25/2017 [id number] [place]ulatory [place] [facility] ing:LABSPEC Repository PAYERS PAYERS ENCOUNTER GUARANTOR PAYER SUBSCRIBER SOURCE 09/02/2018 TAMMI [id number] Primary JAE S [place] Insurance:MEDICAL EGGEMANDOB: [facility] [id number] [facility] [address]Lki: [phone]) Number: Repository [phone] ) [id number] Date:4846-89-17TH [address] [place] [address]CA: 09/02/2018 Secondary NOT GIVENUNK [place] Insurance:SELF PAY [facility] Number: Effective Repository Date:2018-09-02 08/19/2018 TAMMI [id number] Primary JAE S [place] BR[place] Insurance:MEDICAL EGGEMANDOB: [facility] [id number] [place], [place] [address]Tel: [phone] Number: Repository [phone] () [id number] Date:2465-57-55JE [address] [address]KT: 08/19/2018 Secondary NOT GIVENUNK [place] Insurance:SELF PAY [facility] Number: Effective Repository Date:2018-06-01 07/27/2018 TAMMI [id number] Primary JAE S [place] Insurance:MEDICAL EGGEMANDOB: [facility] [id number] [id number]: [phone]) Number: Repository [phone] () [id number] Date:5296-89-64DA [place] [id number]: 07/27/2018 Secondary NOT GIVENUNK [place] Insurance:SELF PAY [facility] Number: Effective Repository Date:2018-07-27 05/28/2018 Tammi [id number] Primary JAE [place] Insurance:MEDICAL EGGEMANDOB: [facility] [id number] [id number]: [phone]) Number: Repository [phone] () [id number] Date:3630-09-54MC [place] [id number]: 05/28/2018 Secondary NOT GIVENUNK [place] Insurance:SELF PAY [facility] Number: Effective Repository Date:2018-05-28 01/21/2018 Tammi [id number] Primary JAE Jona BR[place] Insurance:MEDICAL EGGEMANDOB: [facility] [id number] Hospital [address]Cpm: Number: Repository [phone] [id number] () Date:5224-36-45CX [address] [address]UD: 01/21/2018 Secondary NOT GIVENUNK [place] Insurance:SELF PAY [facility] Number: Effective Repository Date:2018-01-21 01/07/2018 Tammi [id number] Primary JAE [place] Insurance:MEDICAL EGGEMANDOB: [address]10[address]06[facility] [address]Xfa: Number: Repository [phone] [id number] (HP) Date:6570-65-98IC [address] [address]AX: 01/07/2018 Secondary NOT GIVENUNK [place] Insurance:SELF PAY [facility] Number: Effective Repository Date:2018-01-07 09/25/2017 Tammi [id number] Primary JAE [place] Insurance:MEDICAL EGGEMANDOB: [facility] [id number] Hospital [address]Jji: Number: Repository [phone] [id number] -2 () Date:6635-69-30LO [address] [address]TV: 09/25/2017 Secondary NOT GIVENUNK [place] Insurance:SELF PAY [facility] Number: Effective Repository Date:2017-09-25
== END ==
LOC: LAB 12:27 → LAB.FUTURE 12:40
PROVIDERS: Family Provider Family Medicine; PCP Family Medicine; Referring Provider Obstetrics & Gynecology; Visit Provider Obstetrics & Gynecology
DX: R19.7 Diarrhea, unspecified (principal); R10.2 Pelvic and perineal pain

== ENCOUNTER → 2019-01-14 11:49 | Outpatient (CLI) | payer OTHER, SELFPAY ==
[2018-08-18 11:27] VITALS: BMI 29.0
--- NOTE | 2019-01-14 11:30 | EMB_PTH ---
PATIENT: JAE POSEY LOC: [facility] U#:[id number] AGE/SX: 45/F ROOM: RE01/14/[address]: Dr. Ford Burgess MD : 1980 BED: DIS: SPEC #: [id number] RECD: 01/14/19 13:50 STATUS: RINA BELLA #: [id number] GINNY: 01/14/19 11:[address]: Ford Burgess DEPT: SURGICAL PATHOLOGY RECD BY: Bridger Wakefield Tissues: Endometrium, NOS Procedures: Surgery Specimen Level IV HEADER OPERATION: Endometrial biopsy PRE-OP DIAGNOSIS: N93.9 TISSUE SUBMITTED: Endometrial biopsy MICROSCOPIC DIAGNOSIS Endometrium, biopsy: Secretory endometrium. AM:annamarie 01/15/19 MICROSCOPIC DESCRIPTION Slides are reviewed. GROSS DESCRIPTION Received in fixative is one container labeled with the patient's name and designated endometrial biopsy. The specimen consists of multiple irregular and elongated fragments of light pink-yoder soft tissue that in aggregate measure 2.2 x 2 x 0.1 cm. The specimen is totally submitted in one cassette. / AM:annamarie 01/14/19 TC:5 CPT: 90922
[2019-01-14 14:21] LABS: Thyroid Stim Hormone (TSH) 1.72 uIU/mL (0.358-3.74)
[2019-01-18 10:12] LABS: HPV Reflexed? NOT INDICATED
== END ==
PROVIDERS: Referring Provider Obstetrics & Gynecology; Visit Provider Obstetrics & Gynecology
DX: N93.9 Abnormal uterine and vaginal bleeding, unspecified (principal); Z12.4 Encounter for screening for malignant neoplasm of cervix
CPT/HCPCS: 36415; 84443; 87624; 88175; 88305; G0145

== ENCOUNTER 2019-02-15 11:46 | Day surgery (SDC) | payer OTHER, SELFPAY ==
[2019-02-10 17:20] LABS: Hematocrit 37.3 % (37-47); Hemoglobin 12.1 g/dl (12.0-15.0); Mean Corp Hgb Conc 32.4 g/gl (32-36); Mean Corpuscular Hgb 28.3 pg (27.0-32.0); Mean Corpuscular Volume 87.1 fL (81-99); Mean Platelet Vol. 11.1 fl (6.2-12.0); Platelet Count 189 K/mm3 (150-450); RBC Distribution Width CV 13.9 % (11.6-14.6); RBC Distribution Width SD 43.2 fl (35.1-43.9); Red Blood Count 4.28 M/mm3 (4.2-5.4); White Blood Count 6.6 K/mm3 (4.4-11.0)
[2019-02-10 17:21] LABS: Scan Indicated on CBC? Y/N NO
[2019-02-10 17:23] LABS: Prothrombin Time (Protime)PT. 13.1 SECONDS (11.7-14.9)
[2019-02-10 17:24] LABS: Partial Thromboplast Time 25.6 Seconds (24.1-36.2)
--- NOTE | 2019-02-14 21:16 | HP.PCM_ITS ---
History and Physical Date of Admission: 02/15/19 Surgical History and Physical Gissel Kunz, a 38 year old female 3 0 1 0 3, presents for HTA, Hysteroscopy and D and C on February 15, 2019 at 10:30. -- Menorrhagia -- Irregular Heavy Menses with Pelvic Pain which began 5 months ago. Gissel claims it started with menses and has been present Since Delivery 5 months ago. It occurs with menses. It is located in the vagina.; It is located in the lower abdomen. Gissel characterizes it to be non-radiating. Gissel characterizes the qu ality cramping.; Gissel characterizes the quality aching.; Gissel characterizes the quality heavy. Severity is moderate and not improving; Additional comments are: had tubal with .; Additional comments are: recent TSH and EMBx ok. MEDICATIONS HISTORY: ALLERGIES: No Known Drug Allergies Infections - Chicken pox Illnesses - none Accidents - no injuries of consequence Hospitalizations - see surgery HSV; Review of Systems: GENERAL - Denies fever, or chills SKIN - Denies skin changes EYES - Denies visual changes EARS - Denies difficulty hearing NOSE - Denies nasal congestion or bleeding MOUTH - Denies sore throat or difficulty swallowing NECK - Denies pain or swelling RESPIRATORY - Denies shortness of breath or wheezing CARDIOVASCULAR - Denies palpitations or chest pain GASTROINTESTINAL - Denies nausea, vomiting, diarrhea, constipation GENITOURINARY - Denies dysuria, frequency of urination, incontinence of urine MUSCULOSKELETAL - Denies joint or muscle pain NEUROLOGICAL - Denies localized numbness or weakness PSYCHIATRIC - Denies depression or anxiety ENDOCRINE - Denies heat or cold intolerance, weight loss or gain HEMATO-IMMUNOLOGIC - Denies excessive bleeding with cuts SOCIAL HISTORY: Alcohol Use - denies drinking Smoking - quit 09/20 Diet - moderate, balanced diet Lifestyle - Exercise - 2 x per week Seat Belt Use - always Employer - [employer] Job Description - Engine Maintenance Mechanic Illicit Drug Use - denies use of street drugs Sexual Activity - Residence - lives with Place of - [place], [place] Hours Worked - 35 Spouse-Sig Other Name - Peter Spouse-Sig Other Occupation - Crime Scene Specialist - Tamara GARCIA Spouse-Sig Other Phone No - [phone] Children Name(s) - Darline [address](18) Control - Prior Tubal FAMILY HISTORY: nc MENSTRUAL HISTORY: LMP Known?- DefiniteAmount/Duration - 2-3 days, Regularity - Irregular, Frequency - monthly days, LMP - 01/18/19, Age Onset Menarche - 14 PAST PREGNANCIES: Total Pregnancies - 4; Full Term Pregnancies - 3; Premature - 0; Abortions, Induced - 0; Abortions, Spontaneous - 1; Ectopics - 0; Multiple Births - 0; Living Children - 3 SURGICAL HISTORY: 1. 01/30/2011 PC/Section ; Ford Burgess M.D. - Elective 2. 08/19/2018 ; Ford Burgess M.D. - PHYSICAL EXAM BP- 110/68 Sitting, Right arm, regular cuff Weight- 147.60881 lbs Height- 64 inch BMI:25.29 CONSTITUTIONAL - NAD, well nourished, and well developed SKIN - No rash, lesions, or ulcers HEENT - Normocephalic, PERRLA, EOMI NECK - No nodes, no nuchal rigidity and thyroid normal size and texture LYMPH NODES - Palpation of lymph nodes in neck and groins within normal limits LUNGS - CTA x2 without wheezes, crackles or rales CARDIAC - Regular rate and rhythm without rubs, murmurs, or gallops ABDOMEN - Without hepatosplenomegaly, distention, masses, rebound, or guarding; normal bowel sounds; no hernias EXTREMITIES - No edema or calf tenderness NEUROLOGICAL - Cranial nerves II-XII grossly intact PSYCHIATRIC - A and O to time, place, person, mood and affect External Genitial Vagina - non-tender without lesions Urethra/Urethral Meatus - non-tender Bladder - non-tender Vagina - vaginal slater are pink and moist without loss of rugae and no evidence of atropy Cervix - without cervical motion tenderness and has normal size and features without evident lesions Uterus - multiparous size 6 cm & wt 75-125 g Adnexa - clear without massess or tenderness ASSESSMENT/PLAN: 1. Menorrhagia EMBx and TSH OK. Reviewed normal pelvic u/s results with pt. Plan to proceed with Dx H/S, HTA and D and C. All questions answered.
[2019-02-15 12:39] VITALS: BP 99/68; PULSE 66; RESP 18; TEMP 36.4; O2SAT 100; BMI 25.1
--- NOTE | 2019-02-15 13:45 | EMB_PTH ---
PATIENT: JAE POSEY LOC: [facility] U#:[id number] AGE/SX: 38/F ROOM: RE02/15/[address]: Dr. Ford Burgess MD : 1980 BED: DIS: 02/15/2019 SPEC #: [id number] RECD: 02/16/19 08:40 STATUS: RINA BELLA #: [id number] GINNY: 02/15/19 13:[address]: Ford Burgess DEPT: SURGICAL PATHOLOGY RECD BY: Bridger Wakefield ENTERED: 02/16/19 08:48 SP TYPE: ENDOM BX/C OTHR DR: Dr. Ford Velarde MD Tissues: Endometrium, NOS Procedures: Surgery Specimen Level IV HEADER OPERATION: Hysteroscopy, hydroablation, D & C PRE-OP DIAGNOSIS: Menorrhagia TISSUE SUBMITTED: Endometrial curettings MICROSCOPIC DIAGNOSIS Endometrium, curettings: Mild chronic endometritis. Minimally disordered endometrium. Focal glandular and stromal breakdown. Rare strips of benign superficial ectocervix and endocervix. AM:annamarie 02/17/19 MICROSCOPIC DESCRIPTION Slides are reviewed. GROSS DESCRIPTION Received in fixative is one container labeled with the patient's name and designated endometrial curettings. The specimen consists of multiple fragments of hemorrhagic soft tissue that in aggregate measure 7.5 x 3 x 0.3 cm. The entire specimen is submitted in three cassettes. / SJ:annamarie 02/16/19 TC:3 CPT: 68352
--- NOTE | 2019-02-15 14:44 | OP.PCM_ITS ---
Report of Operation Date of Procedure: 02/15/19 Pre-Operative Diagnosis: Menorrhagia Post-Operative Diagnosis: Menorrhagia Surgery/Procedure Performed:: Diagnostic Hysteroscopy, Dilation and Curettage, Hydrothermal Ablation Description of Surgical Findings:: 8 cm endometrial cavity without polyps or fibroids. Type of Anesthesia:: General - LMA Anesthesiologist: Alec Pimentel Specimen's removed: Endometrial curettings Estimated Blood Loss (mL): Minimal Fluids Replaced: Crystalloid Description of Procedure: Surgeon: Ford Burgess MD, FACOG Indication: This is a 38 year old patient who has been having problems with extremely heavy menses. Conservative measures have not been helpful. End ometrial sampling was benign and pelvic ultrasound showed that ablation may be helpful. Pt has been counseled regarding the risks, benefits and alternatives of this procedure and all questions answered. She understands that only about half of patients will have amenorrhea after this procedure. All questions were answered we consider the patient well-informed. Procedure: Patient taken to the operating room where after induction of general anesthesia the patient was prepped and draped in the usual sterile fashion. Bladder was drained of urine with a catheter. Anterior cervix grasped and cervix was dilated to about 17 Albanian size. Hysteroscopic hydrothermal ablation (HTA) unit was place in the cervix and the above findings were noted. HTA unit was removed and the uterus was gently curretted removing all contents. An HTA ablation cycle was then carried out at about 90 degrees Centigrade for 10 minutes with virtually no fluid loss during the procedure. After an appropriate cool down the HTA unit was removed with minimal bleeding noted. Patient tolerated procedure well was taken to recovery room in satisfactory condition sponge instrument and needle counts were all reportedly correct. Estimated blood loss for the case was minimal. Specimens to pathology were endometrial curettings. Grafts/Implants Used: None - Complications None - Admit VTE Documentation VTE Present on Admission: Yes VTE Mechan Device Prophylaxis: SCD's
--- NOTE | 2019-02-15 14:46 | DCINST_ITS ---
Discharge Diet: No Restrictions Discharge Activity: Return to Normal Activity, May Shower, May Take a Tub Bath May resume sexual activity in: 4 weeks Call your doctor if you observe: Fever of 101 or Higher, Inability to urinate, Inability to have a bowel movement, Using more than one pad per hour Additional Instructions: Nothing in the vagina for 3 weeks. Allergies/Adverse Reactions: Allergies No Known Allergies Allergy (Verified 02/15/19 12:39) Medications to take at Discharge Ferrous Sulfate [Iron] 325 mg PO DAILY 02/08/19 Multivitamin [Daily Multiple Vitamin] 1 each PO DAILY 02/08/19 Hydrocodone/Acetaminophen [[place] 5-325 Tablet] 1 ea PO Q6H PRN PRN 7 Days #10 tab 02/15/19 The following prescriptions were given: Hydrocodone/Acetaminophen [[place] 5-325 Tablet] 1 ea PO Q6H PRN PRN 7 Days #10 tab PRN Reason: Severe Pain (6-10/10) Primary Care Physician: Ford Velarde [Primary Care Provider] - Test Results: Test results from this visit will be discussed in further detail at your follow- up appointment, if applicable. Please Follow Up With: Ford Burgess MD When: 3 to 4 weeks
[2019-02-15 15:37] VITALS: BP 115/65; BP 99/68; PULSE 68; RESP 16; TEMP 36.6; O2SAT 99
[2019-02-15 15:45] VITALS: BP 116/74; BP 99/68; PULSE 68; RESP 16; O2SAT 100
[2019-02-15 16:00] VITALS: BP 112/74; BP 99/68; PULSE 64; RESP 16; O2SAT 99
[2019-02-15] MEDS: HYDROcodone Bitartrate/Apap 5/325 Tablet PO (16:08)
[2019-02-15 17:05] VITALS: BP 99/58; BP 99/68; PULSE 66; RESP 16; TEMP 36.8; O2SAT 100
== END 2019-02-15 17:13 | disposition home or self-care (01) ==
LOC: SDC 11:47 → AC 11:47
PROVIDERS: Family Provider Family Medicine; PCP Family Medicine; Referring Provider Obstetrics & Gynecology; Visit Provider Obstetrics & Gynecology
PROC: 0U5B8ZZ Destruction of Endometrium, Via Natural or Artificial Opening Endoscopic (ICD-10-PCS; CPT 58563; principal; 2019-02-15 13:30)
DX: N71.1 Chronic inflammatory disease of uterus (principal); N92.0 Excessive and frequent menstruation with regular cycle; D64.9 Anemia, unspecified; Z79.899 Other long term (current) drug therapy; Z87.891 Personal history of nicotine dependence
CPT/HCPCS: 58563; 36415; 85027; 85610; 85730; 86850; 86900; 88305; J7120; J2405

== ENCOUNTER → 2022-07-30 | Outpatient (CLI) | payer OTHER, SELFPAY | END | disposition home or self-care (01) | PROVIDERS: PCP Family Medicine; Visit Provider Obstetrics & Gynecology | DX: N76.0 Acute vaginitis (principal) ==

== ENCOUNTER → 2023-01-16 | Outpatient (CLI) | payer OTHER, SELFPAY ==
--- NOTE | 2023-01-16 16:02 | BI_ITS ---
MAMMOGRAPHY - BILATERAL SCREENING 3-D TOMOSYNTHESIS REASON FOR EXAM: Female, 42 years old. SCREENING PERTINENT HISTORY: No significant family history. TECHNIQUE: 2-D mammograms and 3-D Tomosynthesis of the breast (s) were performed. CAD was performed. COMPARISON: None. Baseline examination. FINDINGS: The breast composition is heterogeneously dense that can obscure small breast masses. Scattered benign calcifications are seen. No dense spiculated masses or suspicious microcalcifications are identified. No architectural distortion is identified. There is no skin thickening or retraction. BI/SCRN MAMM (CAD)W/NYDIA BILAT IMPRESSION: No mammographic signs of malignancy. Routine yearly mammograms recommended. ASSESSMENT CATEGORY: BIRADS Category 2: Benign. A letter regarding these results will be sent to the patient by the facility within 30 days. FOLLOW UP RECOMMENDATION: Yearly follow up mammogram recommended. (A) Approximately 10% of breast cancers are not detected by mammography. A normal mammogram should not delay biopsy of a clinically suspicious abnormality. Electronically Signed: Bruce Vazquez MD at 7:49 EDT ,
== END | disposition home or self-care (01) ==
LOC: OPBI 15:59
PROVIDERS: PCP Family Medicine; Referring Provider Physician Assistant; Visit Provider Physician Assistant
DX: Z12.31 Encounter for screening mammogram for malignant neoplasm of breast (principal)
CPT/HCPCS: 77063; 77067

== ENCOUNTER → 2025-06-01 | Outpatient (CLI) | payer OTHER, SELFPAY ==
--- NOTE | 2025-06-01 15:50 | RAD_ITS ---
PROCEDURE: SHOULDER MIN 2 VIEWS 06/01/2025 REASON FOR EXAM: PAIN TECHNIQUE: SHOULDER MIN 2 VIEWS COMPARISON: none RAD/Shoulder min 2 Views IMPRESSION: No acute fracture or dislocations. No significant degenerative changes. No acute soft tissue abnormalities. No radiographic foreign body. Reading Location: [facility]
== END | disposition home or self-care (01) ==
LOC: RAD 15:37
PROVIDERS: PCP Family Medicine; Referring Provider Physician Assistant; Visit Provider Physician Assistant
DX: M25.512 Pain in left shoulder (principal)
CPT/HCPCS: 73030